=== PATIENT | male | born 1960 | race Caucasian/White ===

== ENCOUNTER 2019-08-05 17:05 | Emergency (ER) | payer OTHER ==
[~2019-08-05] VITALS: Ht 172.7 cm; Wt 72.6 kg
[2019-08-05 17:08] VITALS: BP 145/94
[2019-08-05] MEDS ORDERED: DEPO-MEDROL IM STA (17:31)
[2019-08-05] MEDS ORDERED: DEPO-MEDROL ONE (17:33)
[2019-08-05] MEDS ORDERED: TORADOL ONE (17:34)
--- NOTE | 2019-08-05 17:36 | ER.PDOC ---
General Chief Complaint: Extremities Stated Complaint: RHEUMATOID ARTHRITIS TRAVEL OUT OF US: No Time seen by MD: 17:28 Source: patient Exam Limitations: no limitations History of Present Illness Initial Comments Pt with a history of RA, who has not taken his medicines for about a year or more, cannot obtain his prescriptions because he does not have a doctor to do that Timing/Duration: constant, getting worse Associated Symptoms: denies symptoms Past Medical History Medical History: arrhythmia, other Surgical History: no surgical history Social History Smoking: less than 1 pack/day Alcohol Use: none Drug Use: marijuana Review of Systems Constitutional: see HPI Musculoskeletal: see HPI All Other Systems: Reviewed and Negative Physical Exam General Appearance: No Apparent Distress, WD/WN EENT: eyes nml inspection, nml ENT inspection Neck: Non-Tender, Full Range of Motion, Supple Respiratory: chest non-tender, lungs clear, normal breath sounds CVS: reg rate & rhythm, no murmur Gastrointestinal: Normal Bowel Sounds Back: Normal Inspection, No CVA Tenderness Extremities: Normal Range of Motion, Inflammation (most joints, especially hands, with deformities and PIP swelling) 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 Skin: Normal Color Lymphatic: No Adenopathy Results/Orders Results/Orders Orders - AMBER HOLLOWAY MD Comprehensive Metabolic Panel (08/05/19 17:31) Cbc With Auto Diff (08/05/19 17:31) Ketorolac Tromethamine (Toradol) (08/05/19 18:00) Methylprednisolone Acetate (Depo-Medrol) (08/05/19 17:31) Methylprednisolone Acetate (Depo-Medrol) (08/05/19 17:33) Ketorolac Tromethamine (Toradol) (08/05/19 17:34) Xr Chest 1v (08/05/19 17:36) Triamcinolone Acetonide (Kenalog-40) (08/05/19 18:00) Triamcinolone Acetonide (Kenalog-40) (08/05/19 17:39) Vital Signs Date Time Temp Pulse Resp B/P (MAP) Pulse Ox O2 Delivery O2 Flow Rate FiO2 08/05/19 17:08 98.2 76 18 145/94 (111) 99 Room Air 08/05/19 17:08 98.2 76 18 08/05/19 17:08 98.2 76 18 99 Room Air Administered Medications Medications (Trade) Dose Ordered Sig/Aurea Route PRN Reason Start Time Stop Time Status Last Admin Dose Admin Ketorolac Tromethamine (Toradol) 60 mg OT ONCE IM 08/05/19 18:00 08/05/19 18:01 DC 08/05/19 17:45 60 MG Triamcinolone Acetonide (Kenalog-40) 80 mg OT ONCE IM 08/05/19 18:00 08/05/19 18:01 DC 08/05/19 17:45 80 MG Laboratory Tests Test 08/05/19 17:45 White Blood Count 5.9 10^3/uL (4.5-11.0) Red Blood Count 5.00 10^6/uL (4.50-5.90) Hemoglobin 14.7 g/dL (13.9-16.3) Hematocrit 44.3 % (37.0-53.0) Mean Corpuscular Volume 88.6 fL (78-100) Mean Corpuscular Hemoglobin 29.4 pg (26-34) Mean Corpuscular Hemoglobin Concent 33.2 g/dL (33-37) Red Cell Distribution Width 14.1 % (11.5-14.5) Platelet Count 336 10^3/uL (150-400) Mean Platelet Volume 9.0 fL (7.8-11.0) Neutrophils (%) (Auto) 65.0 % (41.0-85.0) Lymphocytes (%) (Auto) 22.1 % (24.0-44.0) L Monocytes (%) (Auto) 8.3 % (5.0-12.0) Neutrophils # (Auto) 3.8 10^3/uL (1.8-7.7) Lymphocytes # (Auto) 1.3 10^3/uL (1.0-4.8) Monocytes # (Auto) 0.5 10^3/uL (0.3-0.8) Absolute Immature Granulocyte (auto 0.01 10^3 u/L (0-2) Immature Granulocytes % 0.20 % (0.00-0.50) Eosinophils % 3.9 % (0.0-5.0) Basophils % 0.5 % (0.0-0.2) H Basophils # 0.0 10^3/uL (0.0-0.1) Eosinophil Count 0.2 10^3/uL (0.0-0.2) Sodium Level 138 mmol/L (132-145) Potassium Level 4.2 mmol/L (3.6-5.2) Chloride Level 104.0 mmol/L (96-109) Carbon Dioxide Level 24.3 mmol/L (20.0-32) Anion Gap 13.9 Blood Urea Nitrogen 29 mg/dL (7-18) H Creatinine 1.28 mg/dL (0.59-1.40) Estimated GFR () 70.3 (>/=60) BUN/Creatinine Ratio 22.0 Glucose Level 101 mg/dL (70-110) Calcium Level 9.4 mg/dL (8.4-10.5) Total Bilirubin 0.8 mg/dL (0.2-1.0) Aspartate Amino Transferase (AST) 24 U/L (0-35) Alanine Aminotransferase (ALT) 24 U/L (12-78) Alkaline Phosphatase 105 U/L (50-136) Total Protein 8.4 g/dL (6.4-8.2) H Albumin 3.7 g/dL (3.4-5.0) Globulin 4.7 Course Vitals & review Data Vital Sign - Last 24 Hours 08/05/19 08/05/19 08/05/19 17:08 17:08 17:08 Temp 98.2 98.2 98.2 Pulse 76 76 76 Resp 18 18 18 B/P (MAP) 145/94 (111) Pulse Ox 99 99 O2 Delivery Room Air Room Air Laboratory Tests Test 08/05/19 17:45 White Blood Count 5.9 10^3/uL Red Blood Count 5.00 10^6/uL Hemoglobin 14.7 g/dL Hematocrit 44.3 % Mean Corpuscular Volume 88.6 fL Mean Corpuscular Hemoglobin 29.4 pg Mean Corpuscular Hemoglobin Concent 33.2 g/dL Red Cell Distribution Width 14.1 % Platelet Count 336 10^3/uL Mean Platelet Volume 9.0 fL Neutrophils (%) (Auto) 65.0 % Lymphocytes (%) (Auto) 22.1 % Monocytes (%) (Auto) 8.3 % Neutrophils # (Auto) 3.8 10^3/uL Lymphocytes # (Auto) 1.3 10^3/uL Monocytes # (Auto) 0.5 10^3/uL Absolute Immature Granulocyte (auto 0.01 10^3 u/L Immature Granulocytes % 0.20 % Eosinophils % 3.9 % Basophils % 0.5 % Basophils # 0.0 10^3/uL Eosinophil Count 0.2 10^3/uL Sodium Level 138 mmol/L Potassium Level 4.2 mmol/L Chloride Level 104.0 mmol/L Carbon Dioxide Level 24.3 mmol/L Anion Gap 13.9 Blood Urea Nitrogen 29 mg/dL Creatinine 1.28 mg/dL Estimated GFR () 70.3 BUN/Creatinine Ratio 22.0 Glucose Level 101 mg/dL Calcium Level 9.4 mg/dL Total Bilirubin 0.8 mg/dL Aspartate Amino Transf (AST/SGOT) 24 U/L Alanine Aminotransferase (ALT/SGPT) 24 U/L Alkaline Phosphatase 105 U/L Total Protein 8.4 g/dL Albumin 3.7 g/dL Globulin 4.7 O2 Sat by Pulse Oximetry: 99 Departure Time of Disposition: 18:14 Disposition: 01 HOME, SELF-CARE Impression: Primary Impression: Rheumatoid arthritis flare Condition: Stable Referrals: PCP,UNKNOWN (PCP) PRIMARY CARE PROVIDER Duration or Time Spent with Pa: 20 AMBER HOLLOWAY MD Aug 05, 2019 17:36
[2019-08-05] MEDS ORDERED: KENALOG-40 ONE (17:39)
[2019-08-05 17:52] LABS: BASOPHIL % 0.5 % (0.0-0.2); EOSINOPHIL # 0.2 10^3/uL (0.0-0.2); EOSINOPHIL % 3.9 % (0.0-5.0); HEMOGLOBIN 14.7 g/dL (13.9-16.3); LYMPHOCYTES # 1.3 10^3/uL (1.0-4.8); LYMPHOCYTES % 22.1 % (24.0-44.0); MEAN CELL HGB 29.4 pg (26-34); MEAN CELL HGB CONCENTRATION 33.2 g/dL (33-37); MEAN CORP VOLUME 88.6 fL (78-100); MONOCYTES # 0.5 10^3/uL (0.3-0.8); MONOCYTES % 8.3 % (5.0-12.0); NEUTROPHIL # 3.8 10^3/uL (1.8-7.7); RED CELL DISTRIBUTION WIDTH 14.1 % (11.5-14.5); WHITE BLOOD CELL 5.9 10^3/uL (4.5-11.0)
[2019-08-05] MEDS ORDERED: KENALOG-40 IM ONE (18:00)
[2019-08-05] MEDS ORDERED: TORADOL IM ONE (18:00)
--- NOTE | 2019-08-05 18:01 | DIREP ---
PROCEDURE:CHEST 1 VIEW COMPARISON:None. INDICATIONS:cough, pain FINDINGS: LUNGS/PLEURA:Mild hyper expansion of the lungs. No pneumonia, heart failure or effusions are seen. No pneumothorax, pneumomediastinum, aortic aneurysm or mediastinal widening is seen. VASCULATURE:Normal. Unremarkable pulmonary vasculature. CARDIAC:Normal. No cardiac silhouette abnormality or cardiomegaly. MEDIASTINUM:Normal. No visible mass or adenopathy. BONES:Normal. No fracture or visible bony lesion. OTHER:Negative. CONCLUSION:Mild hyper expansion of the lungs, question mild COPD. No active disease. Dictated by: Jeremy Estrada MD on 08/05/2019 at 05:59 PM
[2019-08-05 18:06] LABS: CARBON DIOXIDE 24.3 mmol/L (20.0-32)
[2019-08-05 18:07] LABS: CALCIUM 9.4 mg/dL (8.4-10.5)
[2019-08-05] MEDS ORDERED: DEMEROL IM STA (18:15)
[2019-08-05] MEDS ORDERED: DEMEROL ONE (18:24)
[2019-08-05 18:30] VITALS: BP 138/72
== END 2019-08-05 18:50 | disposition home or self-care (01) ==
LOC: ER 17:05
DX: M06.9 Rheumatoid arthritis, unspecified (principal); F17.210 Nicotine dependence, cigarettes, uncomplicated; F12.10 Cannabis abuse, uncomplicated; Z79.1 Long term (current) use of non-steroidal anti-inflammatories (NSAID)
CPT/HCPCS: 36415; 71045; 80053; 85025; 96372; 99284; J1885; J2175; J3301; J1030